=== PATIENT | female | born 1950 | race Caucasian/White ===

== ENCOUNTER 2019-02-12 18:42 | Inpatient (IN) | payer MEDICARE, OTHER ==
[~2019-02-12] VITALS: Ht 154.9 cm; Wt 70.0 kg
[~2019-02-12 18:42] MED LIST: ACET-141 PO; ATEN50TA PO; ATOR20TA65 PO; ATOR40TA68 PO; CHOL500010 PO; CIPR500T4 PO; ERGO500013 PO; FLUT16SP17 NASAL; LISI40TA3 PO; METF-849 PO; METR-122 PO; OMEP20CA16 PO; PANT40TA4 PO
[2019-02-12] MEDS ORDERED: morphine 4 MG/ML VIAL IV STA (19:29)
[2019-02-12] MEDS ORDERED: SOD CHLORIDE 0.9% 1,000 ML IV STA (19:29)
[2019-02-12] MEDS ORDERED: ONDANSETRON 4 MG INJ IV STA (19:29)
[2019-02-12] MEDS ORDERED: AMPICILLIN/SULB 3 GM/NS (PMX) 100 ML IVPB ONE (19:30)
[2019-02-12] MEDS ORDERED: ACETAMINOPHEN 325 MG TAB PO PRN (21:00)
[2019-02-12] MEDS ORDERED: ONDANSETRON 4 MG INJ IV PRN (21:00)
[2019-02-12] MEDS ORDERED: HYDROmorphONE 2 MG/ML SYG IV STA (21:05)
[2019-02-13 00:37] VITALS: BP 170/79; PULSE 51; RESP 20
[2019-02-13 01:00] VITALS: BP 133/62; PULSE 60
[2019-02-13 01:15] VITALS: Ht 154.9 cm; Wt 70.0 kg
[2019-02-13] MEDS: DEXTROSE 5%-0.45% NACL 1,000 ML IV SCH ×6 (01:19→23:47)
[2019-02-13 02:00] VITALS: BP 134/67; PULSE 61; RESP 18
[2019-02-13] MEDS ORDERED: ONDANSETRON 4 MG INJ IV PRN (02:00)
[2019-02-13] MEDS ORDERED: ALBUTEROL/IPRATROPIUM (NEB) 3 ML AMP HHN PRN (02:00)
[2019-02-13] MEDS ORDERED: NACL 0.9% 3 ML SYG IV SCH (02:00)
[2019-02-13] MEDS: PIPER-TAZO 3.375 GM IV (PMX) 100 ML IVPB SCH ×3 (05:35→22:28)
[2019-02-13] MEDS: PANTOPRAZOLE (EC) 40 MG TAB PO SCH (06:19)
[2019-02-13 07:22] VITALS: BP 155/73; PULSE 50; RESP 19
[2019-02-13] MEDS: ATORVASTATIN 40 MG TAB PO SCH (08:23)
[2019-02-13] MEDS: FLUTICASONE 0.05% 16 GM NAS SPRAY NASAL SCH ×2 (08:23→21:00)
[2019-02-13] MEDS: metFORMIN 500 MG TAB PO SCH ×2 (08:23→17:48)
[2019-02-13] MEDS ORDERED: NON-FORMULARY/PATIENT OWN MED (Omeprazole* 20 MG) PO SCH (09:00)
[2019-02-13] MEDS ORDERED: ATENOLOL 50 MG TAB PO SCH (09:00)
[2019-02-13] MEDS: LISINOPRIL 20 MG TAB PO SCH (16:52)
[2019-02-13] MEDS: morphine 2 MG INJ IV PRN (20:34)
[2019-02-13 20:42] VITALS: BP_SYST 132; BP_SYST 162; BP_DIAS 61; BP_DIAS 83; PULSE 54; PULSE 57; RESP 19
[2019-02-14 03:02] VITALS: BP 140/67; PULSE 53; RESP 18
[2019-02-14] MEDS: PIPER-TAZO 3.375 GM IV (PMX) 100 ML IVPB SCH ×3 (05:53→21:13)
[2019-02-14] MEDS: PANTOPRAZOLE (EC) 40 MG TAB PO SCH (05:53)
[2019-02-14] MEDS: DEXTROSE 5%-0.45% NACL 1,000 ML IV SCH ×4 (07:59→17:59)
[2019-02-14 08:00] VITALS: BP 145/74; PULSE 55; RESP 18
[2019-02-14] MEDS: ATORVASTATIN 40 MG TAB PO SCH (08:23)
[2019-02-14] MEDS: FLUTICASONE 0.05% 16 GM NAS SPRAY NASAL SCH ×2 (08:23→21:00)
[2019-02-14] MEDS: ENOXAPARIN 40 MG/0.4 ML SYG SC SCH (08:24)
[2019-02-14] MEDS: metFORMIN 500 MG TAB PO SCH ×2 (08:27→17:55)
[2019-02-14] MEDS: LISINOPRIL 20 MG TAB PO SCH ×2 (08:27→21:13)
[2019-02-14] MEDS: morphine 2 MG INJ IV PRN (15:41)
[2019-02-14] MEDS ORDERED: POTASSIUM CHLORIDE 100 ML IVPB ONE (16:00)
[2019-02-14] MEDS: POTASSIUM CHLORIDE (SR) 10 MEQ TAB PO SCH (21:11)
[2019-02-14] MEDS: HYDROCODONE/APAP (5/325) TAB PO PRN (21:59)
[2019-02-15] MEDS: DEXTROSE 5%-0.45% NACL 1,000 ML IV SCH ×3 (00:11→21:37)
[2019-02-15 02:28] VITALS: BP 137/71; PULSE 65; RESP 18
[2019-02-15] MEDS: HYDROCODONE/APAP (5/325) TAB PO PRN ×3 (02:48→19:36)
[2019-02-15] MEDS: PANTOPRAZOLE (EC) 40 MG TAB PO SCH (06:24)
[2019-02-15] MEDS: PIPER-TAZO 3.375 GM IV (PMX) 100 ML IVPB SCH ×3 (06:24→21:36)
[2019-02-15 07:30] VITALS: BP 158/77; PULSE 64; RESP 20
[2019-02-15] MEDS: ATORVASTATIN 40 MG TAB PO SCH (08:23)
[2019-02-15] MEDS: LISINOPRIL 20 MG TAB PO SCH ×2 (08:24→20:59)
[2019-02-15] MEDS: POTASSIUM CHLORIDE (SR) 10 MEQ TAB PO SCH (08:26)
[2019-02-15] MEDS: ENOXAPARIN 40 MG/0.4 ML SYG SC SCH (08:27)
[2019-02-15] MEDS: metFORMIN 500 MG TAB PO SCH ×2 (08:32→17:27)
[2019-02-15] MEDS ORDERED: POTASSIUM CHLORIDE (SR) 20 MEQ TAB PO STA (08:59)
[2019-02-15] MEDS ORDERED: LISINOPRIL 20 MG TAB PO SCH (09:30)
[2019-02-15] MEDS ORDERED: LORAZEPAM 2 MG INJ IV ONE (10:00)
[2019-02-15 10:06] VITALS: BP 166/73; PULSE 63
[2019-02-15] MEDS: FLUTICASONE 0.05% 16 GM NAS SPRAY NASAL SCH ×2 (10:38→20:58)
[2019-02-15] MEDS: morphine 2 MG INJ IV PRN (12:51)
[2019-02-15 14:00] VITALS: BP 150/65; PULSE 69; RESP 18
[2019-02-15 19:56] VITALS: BP 178/88; PULSE 70; RESP 18
[2019-02-15 21:49] VITALS: BP 166/78
[2019-02-16 00:30] VITALS: BP 146/69; PULSE 62; RESP 18
[2019-02-16 02:55] VITALS: BP 162/85; PULSE 65; RESP 18
[2019-02-16] MEDS: PIPER-TAZO 3.375 GM IV (PMX) 100 ML IVPB SCH (05:48)
[2019-02-16] MEDS: PANTOPRAZOLE (EC) 40 MG TAB PO SCH (05:48)
[2019-02-16 06:00] VITALS: BP 179/62; PULSE 60
[2019-02-16 07:18] VITALS: BP 157/78; PULSE 60
[2019-02-16 08:30] VITALS: BP 143/70; PULSE 64; RESP 18
[2019-02-16] MEDS: ATORVASTATIN 40 MG TAB PO SCH (08:31)
[2019-02-16] MEDS: metFORMIN 500 MG TAB PO SCH (08:31)
[2019-02-16] MEDS: LISINOPRIL 20 MG TAB PO SCH (08:32)
[2019-02-16] MEDS: ENOXAPARIN 40 MG/0.4 ML SYG SC SCH (08:33)
[2019-02-16] MEDS: HYDROCODONE/APAP (5/325) TAB PO PRN (08:34)
[2019-02-16] MEDS: FLUTICASONE 0.05% 16 GM NAS SPRAY NASAL SCH (08:38)
[2019-02-16 09:47] VITALS: BP 136/80
== END 2019-02-16 10:55 | disposition home or self-care (01) | DRG 392 ==
LOC: E/R 18:42 → MS1 20:45
PROVIDERS: ADMIT Internal Medicine; ATTEND Internal Medicine
DX: K57.30 Diverticulosis of large intestine without perforation or abscess without bleeding (principal); K29.70 Gastritis, unspecified, without bleeding; I16.0 Hypertensive urgency; E11.9 Type 2 diabetes mellitus without complications; I10 Essential (primary) hypertension; E78.5 Hyperlipidemia, unspecified; R10.13 Epigastric pain; E55.9 Vitamin D deficiency, unspecified; E87.6 Hypokalemia; R50.9 Fever, unspecified
CPT/HCPCS: 36415; 74176; 74181; 80048; 80053; 80061; 81001; 82150; 82962; 83036; 83690; 83735; 84100; 85025; 85651; 87045; 87081; 96374; 96375; J0295; J1170; J1650; J2060; J2270; J2405; J2543; J3480; J7030; J7042

== ENCOUNTER 2019-02-20 20:50 | Inpatient (IN) | payer MEDICARE, OTHER ==
[~2019-02-20] VITALS: Ht 154.9 cm; Wt 66.3 kg
[2019-02-20] MEDS ORDERED: HYDROmorphONE 1 MG/ML SYG IV STA (21:28)
[2019-02-20] MEDS ORDERED: ONDANSETRON 4 MG INJ IV STA (21:28)
[2019-02-20] MEDS ORDERED: SOD CHLORIDE 0.9% 1,000 ML IV STA (21:28)
[2019-02-20] MEDS ORDERED: HYDROmorphONE 2 MG/ML SYG IV STA (23:18)
[2019-02-20] MEDS ORDERED: ONDANSETRON 4 MG INJ IV PRN (23:30)
[2019-02-20] MEDS ORDERED: ACETAMINOPHEN 325 MG TAB PO PRN (23:30)
[2019-02-21] MEDS ORDERED: NACL 0.9% 3 ML SYG IV SCH (00:30)
[2019-02-21] MEDS ORDERED: ONDANSETRON 4 MG INJ IV PRN (00:30)
[2019-02-21] MEDS ORDERED: BISACODYL (EC) 5 MG TAB PO PRN (00:30)
[2019-02-21] MEDS ORDERED: morphine 2 MG INJ IV PRN (00:30)
[2019-02-21] MEDS ORDERED: ACETAMINOPHEN 325 MG TAB PO PRN (00:30)
[2019-02-21] MEDS ORDERED: DOCUSATE SODIUM 100 MG CAP PO PRN (00:30)
[2019-02-21 01:07] VITALS: Ht 154.9 cm; Wt 66.3 kg
[2019-02-21 01:08] VITALS: BP 163/79; PULSE 62; RESP 20
[2019-02-21] MEDS: ACCU-CHEK XX SCH (01:54)
[2019-02-21 01:57] VITALS: BP 137/76; PULSE 66
[2019-02-21] MEDS ORDERED: GLUCOSE GEL 15 GRAM TUBE BUCCAL PRN (02:00)
[2019-02-21] MEDS ORDERED: DEXTROSE 50% 50 ML SYRINGE IV PRN ×2 (02:00)
[2019-02-21] MEDS ORDERED: GLUCAGON 1 MG INJ IM PRN (02:00)
[2019-02-21] MEDS ORDERED: GLUCOSE GEL 15 GRAM TUBE PO PRN ×2 (02:00)
[2019-02-21] MEDS: CEFTRIAXONE 2 GM/50 ML (PMX) 50 ML IVPB SCH (02:24)
[2019-02-21] MEDS ORDERED: ACETAMINOPHEN 500 MG TAB PO PRN (07:30)
[2019-02-21] MEDS: INSULIN ASPART [NOVOLOG] 3 ML PEN SC SCH ×4 (07:35→20:42)
[2019-02-21 08:08] VITALS: BP 146/78; PULSE 66; RESP 18
[2019-02-21] MEDS: FLUTICASONE 0.05% 16 GM NAS SPRAY NASAL SCH ×2 (08:47→20:41)
[2019-02-21] MEDS: LISINOPRIL 20 MG TAB PO SCH (08:48)
[2019-02-21] MEDS: PANTOPRAZOLE (EC) 40 MG TAB PO SCH (08:48)
[2019-02-21] MEDS: ATENOLOL 50 MG TAB PO SCH (08:48)
[2019-02-21] MEDS: CHOLECALCIFEROL 1,000 UNIT TAB PO SCH (08:55)
[2019-02-21 14:16] VITALS: BP 121/59; PULSE 48; RESP 18
[2019-02-21 17:21] VITALS: BP 142/68; PULSE 53
[2019-02-21 20:00] VITALS: BP 134/67; PULSE 51; RESP 18
[2019-02-21] MEDS: ATORVASTATIN 20 MG TAB PO SCH (20:44)
[2019-02-22] VITALS (7 sets, daily range): BP systolic 111–177; BP diastolic 59–79; PULSE 53–60; RESP 16–18
[2019-02-22] MEDS: CEFTRIAXONE 2 GM/50 ML (PMX) 50 ML IVPB SCH (00:26)
[2019-02-22] MEDS: ACCU-CHEK XX SCH (02:00)
[2019-02-22] MEDS: PANTOPRAZOLE (EC) 40 MG TAB PO SCH (05:05)
[2019-02-22] MEDS: DEXTROSE 5%-0.9% NACL 1,000 ML IV SCH ×2 (06:39→21:13)
[2019-02-22] MEDS: INSULIN ASPART [NOVOLOG] 3 ML PEN SC SCH ×5 (07:35→21:00)
[2019-02-22] MEDS: ATENOLOL 50 MG TAB PO SCH (09:00)
[2019-02-22] MEDS: FLUTICASONE 0.05% 16 GM NAS SPRAY NASAL SCH ×2 (09:39→21:08)
[2019-02-22] MEDS: CHOLECALCIFEROL 1,000 UNIT TAB PO SCH (09:39)
[2019-02-22] MEDS: LISINOPRIL 20 MG TAB PO SCH (09:41)
[2019-02-22] MEDS ORDERED: hydrALAzine 20 MG INJ IV PRN (18:29)
[2019-02-22] MEDS: ATORVASTATIN 20 MG TAB PO SCH (21:08)
[2019-02-23] VITALS (9 sets, daily range): BP systolic 112–190; BP diastolic 59–91; PULSE 52–92; RESP 18–28
[2019-02-23] MEDS: CEFTRIAXONE 2 GM/50 ML (PMX) 50 ML IVPB SCH (01:13)
[2019-02-23] MEDS: ACCU-CHEK XX SCH (01:16)
[2019-02-23] MEDS: PANTOPRAZOLE (EC) 40 MG TAB PO SCH (05:34)
[2019-02-23] MEDS: INSULIN ASPART [NOVOLOG] 3 ML PEN SC SCH ×4 (07:55→20:54)
[2019-02-23] MEDS: DEXTROSE 5%-0.9% NACL 1,000 ML IV SCH ×3 (09:40→23:00)
[2019-02-23] MEDS ORDERED: PROPOFOL 20 ML ONE (10:41)
[2019-02-23] MEDS ORDERED: hydrALAzine 20 MG INJ ONE (10:59)
[2019-02-23] MEDS ORDERED: ONDANSETRON 4 MG INJ IV PRN (11:00)
[2019-02-23] MEDS: FLUTICASONE 0.05% 16 GM NAS SPRAY NASAL SCH ×2 (12:25→20:51)
[2019-02-23] MEDS: LISINOPRIL 20 MG TAB PO SCH (12:26)
[2019-02-23] MEDS: CHOLECALCIFEROL 1,000 UNIT TAB PO SCH (12:27)
[2019-02-23] MEDS: ATENOLOL 50 MG TAB PO SCH (12:27)
[2019-02-23] MEDS: ATORVASTATIN 20 MG TAB PO SCH (20:51)
[2019-02-24] VITALS: BP 139/67; PULSE 57; RESP 19
[2019-02-24] MEDS: CEFTRIAXONE 2 GM/50 ML (PMX) 50 ML IVPB SCH (01:52)
[2019-02-24] MEDS: ACCU-CHEK XX SCH (03:15)
[2019-02-24 04:00] VITALS: BP 132/81; PULSE 54; RESP 19
[2019-02-24] MEDS: PANTOPRAZOLE (EC) 40 MG TAB PO SCH (06:59)
[2019-02-24] MEDS: INSULIN ASPART [NOVOLOG] 3 ML PEN SC SCH ×4 (07:55→21:00)
[2019-02-24 08:05] VITALS: BP 148/81; PULSE 61; RESP 17
[2019-02-24] MEDS: DEXTROSE 5%-0.9% NACL 1,000 ML IV SCH ×2 (09:21→12:20)
[2019-02-24] MEDS: CHOLECALCIFEROL 1,000 UNIT TAB PO SCH (09:21)
[2019-02-24] MEDS: ATENOLOL 50 MG TAB PO SCH (09:22)
[2019-02-24] MEDS: LISINOPRIL 20 MG TAB PO SCH (09:23)
[2019-02-24] MEDS: FLUTICASONE 0.05% 16 GM NAS SPRAY NASAL SCH ×2 (09:23→21:52)
[2019-02-24 11:31] VITALS: BP 127/60; PULSE 52; RESP 16
[2019-02-24 15:30] VITALS: BP 126/69; PULSE 54; RESP 17
[2019-02-24 20:00] VITALS: BP 143/69; PULSE 52; RESP 19
[2019-02-24] MEDS: ATORVASTATIN 20 MG TAB PO SCH (21:52)
[2019-02-25] VITALS: BP 148/71; PULSE 56; RESP 19
[2019-02-25] MEDS: CEFTRIAXONE 2 GM/50 ML (PMX) 50 ML IVPB SCH (00:58)
[2019-02-25] MEDS: ACCU-CHEK XX SCH (01:38)
[2019-02-25] MEDS: DEXTROSE 5%-0.9% NACL 1,000 ML IV SCH (01:40)
[2019-02-25 04:00] VITALS: BP 136/78; PULSE 53; RESP 18
[2019-02-25] MEDS: PANTOPRAZOLE (EC) 40 MG TAB PO SCH (06:07)
[2019-02-25 07:29] VITALS: BP 138/70; PULSE 59; RESP 18
[2019-02-25] MEDS: INSULIN ASPART [NOVOLOG] 3 ML PEN SC SCH ×2 (07:42→11:50)
[2019-02-25] MEDS: CHOLECALCIFEROL 1,000 UNIT TAB PO SCH (08:08)
[2019-02-25] MEDS: LISINOPRIL 20 MG TAB PO SCH (08:08)
[2019-02-25] MEDS: FLUTICASONE 0.05% 16 GM NAS SPRAY NASAL SCH (08:08)
[2019-02-25] MEDS: ATENOLOL 50 MG TAB PO SCH (08:09)
[2019-02-25 11:10] VITALS: BP 145/75; PULSE 52; RESP 16
[2019-02-25 15:01] VITALS: BP 134/89; PULSE 59; RESP 18
== END 2019-02-25 16:35 | disposition home or self-care (01) | DRG 392 ==
LOC: E/R 20:50 → MS3 23:18 → INTOOBSV 23:19 → OBSVTOIN 23:19 → TEL 02-22 17:08
PROVIDERS: ADMIT Family Medicine; ATTEND Family Medicine
PROC: 0DB68ZX Excision of Stomach, Via Natural or Artificial Opening Endoscopic, Diagnostic (ICD-10-PCS; principal; 2019-02-23 11:30)
DX: K29.70 Gastritis, unspecified, without bleeding (principal); N39.0 Urinary tract infection, site not specified; K80.20 Calculus of gallbladder without cholecystitis without obstruction; K57.30 Diverticulosis of large intestine without perforation or abscess without bleeding; I10 Essential (primary) hypertension; E11.9 Type 2 diabetes mellitus without complications; K21.9 Gastro-esophageal reflux disease without esophagitis; R00.1 Bradycardia, unspecified; K44.9 Diaphragmatic hernia without obstruction or gangrene
CPT/HCPCS: 36415; 74176; 74181; 80053; 81001; 82150; 82550; 82553; 82962; 83690; 83735; 84100; 84439; 84443; 84484; 85025; 85651; 86140; 87086; 88305; 88312; 93005; 96361; 96374; 96375; G0378; J0360; J0696; J1170; J1815; J2270; J2405; J7030; J7042